=== PATIENT | female | born 1970 | race African-American/Black ===

== ENCOUNTER 2023-05-19 16:59 | Emergency (ER) | payer MEDICAID ==
[~2023-05-19] VITALS: Ht 147.3 cm; Wt 82.6 kg
[2023-05-19 17:43] VITALS: BP 149/93; PULSE 86; RESP 16; TEMP 98; O2SAT 98
[2023-05-19 19:27] LABS: BASOPHILS # (AUTO) 0.1 K/uL (0.00-0.22); BASOPHILS % (AUTO) 0.8 % (0.0-2.0); EOSINOPHILS # (AUTO) 0.1 K/uL (0-0.4); EOSINOPHILS % (AUTO) 1.9 % (0.0-4.0); HEMATOCRIT 37.8 % (36-48); HEMOGLOBIN 12.4 g/dL (12.0-16.0); LYMPHOCYTES # (AUTO) 3.2 K/uL (2.5-16.5); LYMPHOCYTES % (AUTO) 41.8 % (20.5-51.1); MEAN CORPUSCULAR HEMOGLOBIN 28 pg (27-31); MEAN CORPUSCULAR HGB CONC 33 g/dL (33-37); MEAN CORPUSCULAR VOLUME 86.7 fL (80-94); MONOCYTES # (AUTO) 0.3 K/uL (0.8-1.0); MONOCYTES % (AUTO) 4.6 % (1.7-9.3); NEUTROPHILS # (AUTO) 3.9 K/uL (1.8-7.7); NEUTROPHILS % (AUTO) 50.9 % (42.2-75.2); PLATELET COUNT (AUTO) 295 K/uL (140-450); RED BLOOD CELL COUNT(AUTO) 4.36 MIL/uL (4.20-5.40); RED CELL DISTRIBUTION WIDTH 12.8 % (11.6-13.7); WHITE BLOOD COUNT (AUTO) 7.6 K/uL (4.8-10.8)
[2023-05-19 19:43] LABS: INR 0.88 (0.8-1.2); PARTIAL THROMBOPLASTIN TIME 25.1 secs (22-35.6); PROTHROMBIN TIME 9.3 secs (10.8-13.4)
[2023-05-19] MEDS ORDERED: ASPIRIN 325 MG TAB PO ONE (19:55)
[2023-05-19 19:59] LABS: ALBUMIN 3.6 g/dL (3.4-5.0); ANION GAP 10.7 (8-16); CALCIUM 9.1 mg/dL (8.5-10.1); CARBON DIOXIDE 30.6 mmol/L (21-32); CREATININE 1.1 mg/dL (0.6-1.3); POTASSIUM 4.3 mmol/L (3.5-5.1); TOTAL BILIRUBIN 0.1 mg/dL (0.0-1.0); TOTAL PROTEIN, SERUM 7.5 g/dL (6.4-8.2)
[2023-05-19] MEDS ORDERED: NACL 0.9% 1,000 ML IV ONE (21:05)
[2023-05-19 21:46] VITALS: BP 179/89; PULSE 80; RESP 17
[2023-05-19 23:00] VITALS: O2SAT 99
[2023-05-19] MEDS ORDERED: ASPI-1822 PO (23:45)
[2023-05-20] MEDS ORDERED: KETOROLAC 30 MG/ML VIAL IVP ONE ×2 (00:05→00:10)
[2023-05-20] MEDS: ONDANSETRON 4 MG/2 ML VIAL IVP ONE (00:35)
== END 2023-05-20 02:45 | disposition home or self-care (01) ==
LOC: MED 16:59
DX: R07.9 Chest pain, unspecified (principal); E11.65 Type 2 diabetes mellitus with hyperglycemia; I10 Essential (primary) hypertension; R76.8 Other specified abnormal immunological findings in serum; Z88.8 Allergy status to other drugs, medicaments and biological substances; Z79.4 Long term (current) use of insulin; Z79.899 Other long term (current) drug therapy
CPT/HCPCS: 36415; 71045; 71275; 80053; 83880; 84484; 85025; 85379; 85610; 85730; 93005; 96361; 96374; 96375; 99285; J1885; J2405; J7030; Q9967

== ENCOUNTER 2023-06-01 15:07 | Emergency (ER) | payer MEDICAID ==
[~2023-06-01] VITALS: Ht 149.9 cm; Wt 81.6 kg
[~2023-06-01 15:07] MED LIST: ASPI-1822 PO
[2023-06-01 16:23] VITALS: BP 148/88; PULSE 92; RESP 16; TEMP 98.1; O2SAT 98
[2023-06-01] MEDS ORDERED: KETOROLAC 30 MG/ML VIAL IM ONE (16:45)
[2023-06-01] MEDS ORDERED: NAPR-1704 PO (17:54)
== END 2023-06-01 18:25 | disposition home or self-care (01) ==
LOC: MED 15:07
DX: S83.91XA Sprain of unspecified site of right knee, initial encounter (principal); E11.9 Type 2 diabetes mellitus without complications; I10 Essential (primary) hypertension; Z79.899 Other long term (current) drug therapy; Z88.8 Allergy status to other drugs, medicaments and biological substances; W18.30XA Fall on same level, unspecified, initial encounter; Y93.89 Activity, other specified; Y92.22 Religious institution as the place of occurrence of the external cause; Y99.8 Other external cause status
CPT/HCPCS: 73562; 96372; 99283; J1885

== ENCOUNTER 2023-06-07 14:35 | Emergency (ER) | payer MEDICAID ==
[~2023-06-07] VITALS: Ht 149.9 cm; Wt 81.6 kg
[~2023-06-07 14:35] MED LIST changes: +NAPR-1704 PO
[2023-06-07 15:05] VITALS: BP 155/95; PULSE 80; RESP 14; TEMP 97.4; O2SAT 98
[2023-06-07 15:37] LABS: APPEARANCE,URINE CLEAR (CLEAR); BILIRUBIN,URINE NEGATIVE (NEGATIVE); BLOOD, URINE NEGATIVE (NEGATIVE); COLOR,URINE YELLOW (YELLOW); LEUKOCYTE ESTERASE ,URINE NEGATIVE (NEGATIVE); NITRITE, URINE POSITIVE (NEGATIVE); PH,URINE 5.5 (5.0-9.0); PROTEIN,URINE NEGATIVE (NEGATIVE); UGLUCOSE 3+ (NEGATIVE); UROBILINOGEN,URINE 0.2 EU/dL (0.2 - 1)
[2023-06-07 15:37] LABS: BASOPHILS % (AUTO) 0.7 % (0.0-2.0); EOSINOPHILS # (AUTO) 0.2 K/uL (0-0.4); EOSINOPHILS % (AUTO) 3.1 % (0.0-4.0); HEMATOCRIT 38.5 % (36-48); HEMOGLOBIN 12.7 g/dL (12.0-16.0); LYMPHOCYTES # (AUTO) 3.3 K/uL (2.5-16.5); LYMPHOCYTES % (AUTO) 46.3 % (20.5-51.1); MEAN CORPUSCULAR HEMOGLOBIN 29 pg (27-31); MEAN CORPUSCULAR HGB CONC 33 g/dL (33-37); MEAN CORPUSCULAR VOLUME 86.9 fL (80-94); MONOCYTES # (AUTO) 0.3 K/uL (0.8-1.0); MONOCYTES % (AUTO) 4.4 % (1.7-9.3); NEUTROPHILS # (AUTO) 3.3 K/uL (1.8-7.7); NEUTROPHILS % (AUTO) 45.5 % (42.2-75.2); PLATELET COUNT (AUTO) 297 K/uL (140-450); RED BLOOD CELL COUNT(AUTO) 4.44 MIL/uL (4.20-5.40); RED CELL DISTRIBUTION WIDTH 13.1 % (11.6-13.7); WHITE BLOOD COUNT (AUTO) 7.2 K/uL (4.8-10.8)
[2023-06-07 15:46] LABS: BACTERIA,URINE 10-30 (MOD) /HPF (None Seen); RBC,URINE 0-5 /HPF (0-5)
[2023-06-07 15:47] LABS: MUCUS,URINE 1+ /LPF (None Seen); SQUAMOUS EPITHELIAL CELL,UR 4-10 (MOD) /LPF (0-3 (FEW))
[2023-06-07 15:57] LABS: ALANINE AMINOTRANSFERASE 17 U/L (12-78); ALBUMIN 3.9 g/dL (3.4-5.0); ALKALINE PHOSPHATASE 147 U/L (50-136); ANION GAP 10.7 (8-16); ASPARTATE AMINOTRANSFERASE 11 U/L (15-37); CALCIUM 9.1 mg/dL (8.5-10.1); CARBON DIOXIDE 27.5 mmol/L (21-32); CHLORIDE 103 mmol/L (98-107); GFR ARICAN-AMERICAN 75 mL/min (>90); GFR NON ARICAN-AMERICAN 62 mL/min (>90); GLUCOSE 236 mg/dL (74-106); LIPASE 37 U/L (16-77); POTASSIUM 4.2 mmol/L (3.5-5.1); SODIUM SERUM 137 mmol/L (136-145); TOTAL BILIRUBIN 0.2 mg/dL (0.0-1.0); TOTAL PROTEIN, SERUM 7.8 g/dL (6.4-8.2); UREA NITROGEN, BLOOD 9 mg/dL (7-18)
[2023-06-07 16:00] VITALS: TEMP 97.7
[2023-06-07] MEDS ORDERED: DICYCLOMINE HCL LIQUID 20 MG, ALUMINUM HYD/MAG/SIMETHICONE 30 ML, LIDOCAINE VISCOUS 2% ... PO ONE ×3 (16:55)
[2023-06-07] MEDS ORDERED: DICYCLOMINE HCL LIQUID 10 MG/5 ML UDC ONE (17:01)
[2023-06-07] MEDS ORDERED: ALUMINUM HYD/MAG/SIMETHICONE 30 ML UDC ONE ×3 (17:01→17:03)
[2023-06-07] MEDS ORDERED: FAMO-90 PO (17:09)
[2023-06-07] MEDS ORDERED: CEPH-588 PO (17:14)
[2023-06-07 17:28] VITALS: BP 138/72; PULSE 74; RESP 17; O2SAT 98
== END 2023-06-07 17:28 | disposition home or self-care (01) ==
LOC: MED 14:35
DX: R10.13 Epigastric pain (principal); E11.9 Type 2 diabetes mellitus without complications; I10 Essential (primary) hypertension; Z79.899 Other long term (current) drug therapy; Z88.8 Allergy status to other drugs, medicaments and biological substances
CPT/HCPCS: 36415; 71045; 76705; 80053; 81001; 82948; 83690; 84484; 85025; 87086; 99285; Q0092